=== PATIENT | male | born 1980 | race Caucasian/White ===

== ENCOUNTER 2023-10-06 00:19 | Emergency (ER) | payer BC ==
[~2023-10-06] VITALS: Ht 167.6 cm; Wt 69.5 kg
[2023-10-06 03:06] VITALS: BP 118/76; PULSE 91; TEMP 98
== END 2023-10-06 03:06 | disposition home or self-care (01) ==
LOC: COL.ER 00:19
DX: S82.832A Other fracture of upper and lower end of left fibula, initial encounter for closed fracture (principal); S93.05XA Dislocation of left ankle joint, initial encounter; W01.0XXA Fall on same level from slipping, tripping and stumbling without subsequent striking against object, initial encounter
CPT/HCPCS: J2704; J3010; J7030